=== PATIENT | male | born 1965 | race Asian ===

== ENCOUNTER → 2022-10-31 02:52 | Day surgery (SDC) | payer OTHER, SELFPAY ==
[2022-10-30 15:53] VITALS: BMI 27.4
--- NOTE | 2022-10-30 15:57 | PC.NURSE ---
Report to the Outpatient Waiting Room, entrance under the green pavilion located off [facility], at time 1200 on date 10/31/22. Planned Procedure Time: 1400. Time changes happen often and if your time is changed the preop area will call you the afternoon before. - You and your visitor will be asked to self-screen and do not enter if you have any COVID symptoms. - A mask is optional within the hospital at this time. Patients may have clear liquids (water, carbonated beverages, clear teas, apple juice) until 3 hours prior to surgery with a maximum of 20 ounces. - No food from midnight until time of surgery Take the following medications with a SIP of water the morning of surgery: NONE DO NOT STOP ANY OF YOUR OTHER PRESCRIPTION MEDICATIONS PRIOR TO SURGERY ?EXCEPT THE FOLLOWING Medications to discontinue per physician: N/A Date to take last dose: N/A Please no make-up, nail kyrgyz, hairspray, perfume, deodorant, or body powder the day of surgery. No jewelry (including any body piercings) or valuables the day of surgery, leave them at home. Please take a shower or bath the night before, or the morning of, surgery with an antibacterial soap. Wear comfortable, loose fitting clothing. - Jewelry must be removed prior to entering the operating room. Rings and piercings that are not removed may be cut off. - The hospital will not accept responsibility for valuables. - Please leave all valuables, including medications, at home the day of surgery. If you are going home after surgery, a licensed limo driver must drive you home. - NO public transportation without another adult if you receive anesthesia. - We recommend that an adult stay with you for 24 hours following discharge. - We also recommend that you do not drive, make important decision, drink alcoholic beverages, or take any drugs that were not prescribed by your health care provider for at least 24 hours after your discharge time. Follow any additional instructions given to you from your surgeon. If you or anyone in your household have experienced Covid symptoms in the past week, please notify your surgeon or the nurse liaison at the phone number below for possible testing. Telephone instructions given to PT - DANIELLE VIGIL and asked if any additional questions and then verbalized understanding. Patient advised to call surgeon office or pre surgery nurse liaison [phone] if any additional questions.
[2022-10-31] VITALS (7 sets, daily range): BP systolic 127–158; BP diastolic 78–93; PULSE 60–86; RESP 12–20; TEMP 36.5–36.6; O2SAT 98–100
--- NOTE | ~2022-10-31 | CT_ITS ---
Non-contrast CT scan of the Abdomen and Pelvis Clinical indication: Left ureteral stone Technique: 2.5 mm axial scans were obtained through the abdomen and pelvis without intravenous or or al contrast. Dose reduction technique was used on this scan by utilizing automated exposure control a nd iterative reconstruction technique. The dose-length product (DLP) was 194.31 mGy-cm. Findings: Situs inversus totalis noted. Images through the lung bases reveal no other abnormalities. There is probable minimal left hydronephrosis. Small bilateral nonobstructing renal stones measuring approximately 3 mm in diameter. No ureteral stones seen on either side currently. No right hydronephr osis. The liver, spleen, pancreas, gallbladder, and adrenals appear normal. There are atherosclerotic calci fications of the aorta. There is no evidence of bowel obstruction. Normal appendix. Images through the pelvis were performed. There is no evidence of ascites or lymphadenopathy. Urinary bladder unremarkable. Prostate gland and seminal vesicles are unremarkable. Impression: Situs inversus totalis. Minimal left hydronephrosis, which could reflect sequela of recently passed stone. No ureteral stones seen currently. Small bilateral nonobstructing renal stones, as detailed above. Reviewed, dictated and finalized at [facility]. Impression: Situs inversus totalis. Minimal left hydronephrosis, which could reflect sequela of recently passed sto ne. No ureteral stones seen currently. Small bilateral nonobstructing renal stones, as detailed above.
--- NOTE | ~2022-10-31 | XR_ITS ---
EXAMINATION: XR abdomen/kub 1V INDICATION: Urolithiasis TECHNIQUE: Supine views of the abdomen were obtained on 2 radiographs. COMPARISON: None FINDINGS: There is a 6 mm calcification of the left pelvis near the expected location of the left dis jessica ureter. A 2.0 x 0.8 cm ovoid density projects over the left kidney upper pole. The visualized seven g bases are clear. A moderate volume of colonic stool is present. IMPRESSION: 1. Probable 6 mm calcification of the distal left ureter. 2. Ovoid density projecting over the left kidney upper pole which could reflect left kidney stone eda lourdes bowel content such as ingested pill. Reviewed, dictated and finalized at location B. IMPRESSION: 1. Probable 6 mm calcification of the distal left ureter. 2. Ovoid density projecting over the left kidney upper pole which could reflect left kidney stone versus bowel content such as ingested pill.
--- NOTE | 2022-10-31 06:36 | P.HP_ITS ---
History of Present Illness History of Present Illness Consent: Risks, benefits, and alternatives have been discussed and questions answered. Patient agrees to proceed with procedure. Chief complaint: left ureteral stones Narrative: Pankaj Baugh is a 57 year old male Presented to the emergency department [facility] yesterday with a 1 week history of left flank pain. He denied irritable voiding hematuria nausea vomiting. Imaging demonstrated a 7 mm left ureteral stone. His urine showed no signs of infection. After discussion of therapeutic options it was decided that he would be discharged with plans for outpatient ESWL. Patient be made aware the risk of this procedure including, but not limited to, cardiopulmonary events, hematuria, need for additional procedures, perinephric hematoma Review of Systems Cardiovascular: Cardiovascular: Denies chest pain, Denies lightheadedness, Denies palpitations and Denies dyspnea Respiratory: Respiratory: Denies dyspnea Gastrointestinal: Gastrointestinal: Denies diarrhea, Denies nausea and Denies vomiting Genitourinary: Genitourinary: Denies hematuria and Denies dysuria Endocrine: Endocrine: Denies palpitations PMFSH Social History Social History Smoking status: Never smoker Alcohol intake: never Substance use: never Substance use type: does not use Living arrangements: with family Spiritual care concerns: No Meds Home Medications and Allergies Home Medications Medication Instructions Recorded Confirmed Type atorvastatin 80 mg tablet 80 mg PO HS 10/30/22 10/30/22 History dapagliflozin propanediol 10 mg 10 mg PO DAILY 10/30/22 10/30/22 History tablet (Farxiga) linagliptin 5 mg tablet (Tradjenta) 5 mg PO DAILY 10/30/22 10/30/22 History lisinopril 10 mg tablet 10 mg PO DAILY 10/30/22 10/30/22 History metformin 1,000 mg tablet 1,000 mg PO BID 10/30/22 10/30/22 History Allergies Allergy/AdvReac Type Severity Reaction Status Date / Time No Known Allergies Allergy Verified 10/30/22 15:50 Exam Const: General: no acute distress Resp: Effort & Inspection: normal respiratory effort GI: Inspection: non-distended GI Palp: No abdominal tenderness and No Guarding due to palpation present (GI) Auscultation: normal bowel sounds Assessment and Plan Assessment and plan (1) Left ureteral stone: Code(s): N20.1 - Calculus of ureter Status: Acute Assessment and Plan: * Left ESWL
--- NOTE | 2022-10-31 06:39 | WPDHPUPDATE1 ---
History and Physical Update Update Date/Time: 10/31/22 06:39 History and Physical has been reviewed, including an updated exam of the patient. There are NO changes in the patient's condition. Risks, benefits, and alternatives have been discussed and questions answered. Patient agrees to proceed with procedure.
--- NOTE | 2022-10-31 07:45 | P.PNAN_ITS ---
Anes - Initial Pre Proc Eval Procedure: Operation Date: 10/31/22 14:00 Proposed Procedures p Left Extracorporeal Shock Wave Lithotripsy - Gary Charles MD Date/Time: 10/31/22 07:45 Surgeon: Gary Charles MD Pre Op Diagnosis: left ureteral stones Patient Data Age: 57 Gender: M Height: 1.68 m Weight: 77.1 kg Allergies Allergy/AdvReac Type Severity Reaction Status Date / Time No Known Allergies Allergy Verified 10/31/22 13:04 Home Medications Medication Instructions Recorded Confirmed Type atorvastatin 80 mg tablet 80 mg PO HS 10/30/22 10/31/22 History dapagliflozin propanediol 10 mg 10 mg PO DAILY 10/30/22 10/31/22 History tablet (Farxiga) linagliptin 5 mg tablet (Tradjenta) 5 mg PO DAILY 10/30/22 10/31/22 History lisinopril 10 mg tablet 10 mg PO DAILY 10/30/22 10/31/22 History metformin 1,000 mg tablet 1,000 mg PO BID 10/30/22 10/31/22 History cephalexin 500 mg capsule 500 mg PO Q8H #9 caps 10/31/22 Rx hydrocodone 5 mg-acetaminophen 325 1 - 2 tablet PO Q6H PRN pain #20 10/31/22 Rx mg tablet tabs Patient hx anesthesia problems: none Family hx anesthesia problems: none Results Review: All pre-operative results and documents have been reviewed as part of the pre- operative evaluation. [facility] Past Medical History Medical History (Updated 10/31/22 @ 07:46 by Luther Patel MD) Diabetes HTN (hypertension) Hyperlipidemia Left ureteral stone Overweight (BMI 25.0-29.9) Social History Social History Smoking status: Never smoker Alcohol intake: never Substance use: never Substance use type: does not use Living arrangements: with family Spiritual care concerns: No Anes - Eval Final PreProcedure Day of Procedure 10/31/22 07:45 Patient weight: obese Heart: regular rate and rhythm Lungs: clear to auscultation and normal air movement Airway: Mallampati scale class II Neurological: alert and oriented Last oral intake: >/= 8 hours ASA classification: III Emergent: no Anesthetic plan: proceed Anesthesia type and monitoring: general LMA Results Review: All pre-operative results and documents have been reviewed as part of the pre- operative evaluation. Informed Consent: The patient's anesthetic plan and its attendant risks and benefits were discussed with the patient/family/POA. Questions were solicited and answers provided to the satisfaction of the patient/family/POA.
--- NOTE | 2022-10-31 12:22 | ECG_ITS ---
Measurements Intervals [place] Rate: 76 P: -5 [place]: 171 QRS: -12 QRSD: 88 T: 82 QT: 352 QTc: 397 Interpretive Statements SINUS RHYTHM ANTEROLATERAL INFARCT, AGE INDETERMINATE CONSIDER INFERIOR INFARCT, AGE INDETERMINATE BORDERLINE ST-T WAVE ABNORMALITY- HIGH LATERAL LEADS ABNORMAL ECG NO PREVIOUS ECG AVAILABLE FOR COMPARISON Electronically Signed On 10-31-2022 13:06:39 CDT by Dwaine Ocampo D.O.
--- NOTE | 2022-10-31 12:55 | ECG_ITS ---
Measurements Intervals [place] Rate: 80 P: 11 SD: 178 QRS: -12 QRSD: 91 T: 81 QT: 356 QTc: 411 Interpretive Statements SINUS RHYTHM CONSIDER INFERIOR INFARCT, AGE INDETERMINATE BORDERLINE ST-T WAVE ABNORMALITY- HIGH LATERAL LEADS ABNORMAL ECG COMPARED TO ECG 10/31/2022 12:50:25 T-WAVE ABNORMALITY NOW PRESENT Electronically Signed On 10-31-2022 13:08:50 CDT by Dwaine Ocampo D.O.
[2022-10-31 13:04] LABS: Appearance Urine Clear (Clear); Bacteria Urine None Seen /hpf; Bilirubin Urine Negative (Negative); Blood Urine 3+ (Negative); Color Urine Yellow (Yellow); Glucose Urine UA 3+ mg/dL (Negative); Ketones Urine Negative (Negative); Leukocyte Esterase Ur 1+ LEU/UL (Negative); Nitrate Urine Negative (Negative); Protein Urine 1+ mg/dL (Negative); Specific Grav Ur 1.022 (1.001-1.035); Squamous Epithelial Cell Urine Occasional /hpf (Few); Urobilinogen Urine 0.2 mg/dL (<2.0); pH Urine 5.5 (5.0-9.0)
[2022-10-31 13:05] LABS: Add Urine Microscopic? YES
[2022-10-31 13:23] LABS: Glucose Point of Care 169 mg/dl (65-105)
--- NOTE | 2022-10-31 13:24 | SUR.PREOP ---
[address] scan to visualize kidney stones
[2022-10-31] MEDS: LACTATED RINGERS 1,000 ML 30 ML IV CONT ×2 (13:30→14:41)
[2022-10-31 13:42] LABS: INR 0.9; Partial Thromboplastin Time 32.5 SECONDS (22.3-36.8); Prothrombin Time 12.5 Seconds (11.1-14.7)
[2022-10-31 13:47] LABS: Anion Gap 11 mmol/L (8-16); Blood Urea Nitrogen 49 mg/dL (9-20); Calcium 9.1 mg/dL (8.4-10.2); Carbon Dioxide 22 mmol/L (22-30); Chloride 103 mmol/L (98-107); Estimated CRCL calculation 32 ml/min; Estimated Glomerular Filt Rate 33; Glucose 177 mg/dL (65-110); Potassium 4.6 mmol/L (3.4-5.0); Sodium 136 mmol/L (137-145)
--- NOTE | 2022-10-31 14:02 | W.PM.PROC2 ---
Procedure Note - Detailed Date of Procedure 10/31/22 Pre-op Diagnosis Left ureteral stones Post-op Diagnosis Same Procedure Performed Left ESWL Surgeon Gary Charles MD Anesthesia General Description of Procedure The patient was brought to the operative suite where he was placed in the supine position on the Dornier lithotripsy table. The focal point of the lithotripter was placed at a 7mm left mid-ureteral calculus. A total of 3000 shocks were delivered at a power setting of 5. There appeared to be good fragmentation of the stone. The patient tolerated the procedure well and was taken to the recovery room in good condition. Drains No Packing No Pathology None sent Condition Stable Disposition PACU
[2022-10-31] MEDS: ceFAZolin 2 GM/D5W 50 ML 2 GM/50 ML BAG IVPB (14:03)
== END ==
PROVIDERS: Anesthesiology; PCP Physician Assistant; Visit Provider Urology
PROC: (CPT 50590; principal; 2022-10-31 14:00)
DX: N20.1 Calculus of ureter (principal)
CPT/HCPCS: 50590; 36415; 74018; 74176; 80048; 81001; 82948; 85610; 85730; 87077; 87086; 87186; 93005; J0690; J2250; J2405; J2704; J3010; J7120